=== PATIENT | male | born 1970 | race Caucasian/White ===

== ENCOUNTER 2024-09-18 17:47 | Emergency (ER) | payer BC ==
[~2024-09-18] VITALS: Ht 180.3 cm; Wt 86.8 kg
[2024-09-18 20:51] LABS: BASOPHILS # (AUTO) 0.1 X10'3 (0-0.2); BASOPHILS % (AUTO) 0.5 % (0-1); EOSINOPHILS # (AUTO) 0.2 X10'3 (0-0.9); EOSINOPHILS % (AUTO) 1.6 % (0-6); HEMATOCRIT 44.8 % (42.0-52.0); HEMOGLOBIN 15.9 g/dl (14.0-17.9); LYMPHOCYTES # (AUTO) 2.3 X10'3 (1.1-4.8); LYMPHOCYTES % (AUTO) 21.8 % (21-51); MEAN CORPUSCULAR HEMOGLOBIN 31.4 PG (27.0-31.0); MEAN CORPUSCULAR HGB CONC 35.5 g/dL (33.0-36.5); MEAN CORPUSCULAR VOLUME 88.6 FL (78-98); MEAN PLATELET VOLUME 6.7 FL (7.4-10.4); MONOCYTES # (AUTO) 0.7 X10'3 (0-0.9); MONOCYTES % (AUTO) 6.4 % (2-12); NEUTROPHILS # (AUTO) 7.4 X10'3 (1.8-7.7); NEUTROPHILS % (AUTO) 69.7 % (42-75); PLATELET COUNT 241 X10'3 (140-440); RED BLOOD COUNT 5.06 X10'6 (4.70-6.10); RED CELL DISTRIBUTION WIDTH 12.6 % (11.5-14.5); WHITE BLOOD COUNT 10.6 X10'3 (4.5-11.0)
[2024-09-18 21:00] LABS: ALANINE AMINOTRANSFERASE 32 U/L (12-78); ALBUMIN 3.8 G/DL (3.4-5.0); ANION GAP 11 (8-16); ASPARTATE AMINO TRANSFERASE 17 U/L (10-37); BILIRUBIN,TOTAL 0.8 MG/DL (0.1-1.0); BLOOD UREA NITROGEN 11 MG/DL (7-18); BUN/CREATININE RATIO 13.4 (10.0-20.0); CALCIUM 9.8 MG/DL (8.5-10.1); CHLORIDE 97 MMOL/L (99-107); CREATININE 0.82 MG/DL (0.60-1.10); GLUCOSE 366 MG/DL (70-104); POTASSIUM 3.9 MMOL/L (3.5-5.1); SODIUM 134 MMOL/L (135-145); TOTAL CARBON DIOXIDE 25.7 MMOL/L (24-32); TOTAL PROTEIN 7.8 G/DL (6.4-8.2); eCRCL 114 ML/MIN; eGFR > 90 ML/MIN
[2024-09-18 21:06] LABS: ALKALINE PHOSPHATASE 116 IU/L (46-116)
[2024-09-18] MEDS: ketorolac trometh 15mg/ml vial 15 MG/ML ML IV ONE (21:28)
[2024-09-18] MEDS ORDERED: iohexol 300mg/ml 100ml inj. ONE (22:02)
[2024-09-18] MEDS ORDERED: LIDOcaine 1% 30ml preserv. free vial IJ ONE (23:15)
[2024-09-19] MEDS ORDERED: AMOX-580 PO (00:49)
[2024-09-19] MEDS: rabies vaccine (PCEC)/PF 2.5 unit kit IMVAC ONE (00:57)
[2024-09-19] MEDS: rabies immune globulin/PF 150 unit/ml inj IMVAC ONE (00:59)
[2024-09-19 01:26] VITALS: BP 168/99; PULSE 99; RESP 18; TEMP 98.7; O2SAT 99
== END 2024-09-19 01:29 | disposition home or self-care (01) ==
LOC: ER 17:47
DX: S61.452A Open bite of left hand, initial encounter (principal); L02.512 Cutaneous abscess of left hand; Z23 Encounter for immunization; W55.01XA Bitten by cat, initial encounter; Y99.8 Other external cause status; Y93.89 Activity, other specified; Y92.89 Other specified places as the place of occurrence of the external cause
CPT/HCPCS: 10060; 36415; 73130; 73201; 80053; 83605; 84145; 85025; 87040; 90376; 90471; 90675; 96372; 96374; 99285; J1885; Q9967; A6449

== ENCOUNTER 2024-09-22 15:20 | Emergency (ER) | payer BC ==
[~2024-09-22] VITALS: Ht 180.3 cm; Wt 93.2 kg
[~2024-09-22 15:20] MED LIST: AMOX-580 PO
[2024-09-22 15:23] VITALS: BP 163/112; PULSE 100; RESP 16; TEMP 98; O2SAT 98
[2024-09-22] MEDS: rabies vaccine (PCEC)/PF 2.5 unit kit IMVAC ONE (16:10)
== END 2024-09-22 16:21 | disposition home or self-care (01) ==
LOC: ER 15:21
DX: S61.452D Open bite of left hand, subsequent encounter (principal); Z20.3 Contact with and (suspected) exposure to rabies; Z23 Encounter for immunization; W55.01XD Bitten by cat, subsequent encounter; Y93.89 Activity, other specified; Y92.89 Other specified places as the place of occurrence of the external cause; Y99.8 Other external cause status
CPT/HCPCS: 90471; 90675; 99281; 99283

== ENCOUNTER 2024-09-29 13:19 | Emergency (ER) | payer BC ==
[~2024-09-29] VITALS: Ht 180.3 cm; Wt 93.2 kg
[2024-09-29 13:28] VITALS: BP 147/97; PULSE 111; RESP 16; TEMP 98.6; O2SAT 99
[2024-09-29] MEDS ORDERED: AMOX-580 PO (14:16)
[2024-09-29] MEDS: rabies vaccine (PCEC)/PF 2.5 unit kit IMVAC ONE (14:36)
== END 2024-09-29 15:18 | disposition home or self-care (01) ==
LOC: ER 13:19
DX: Z23 Encounter for immunization (principal); Z20.3 Contact with and (suspected) exposure to rabies; L53.8 Other specified erythematous conditions
CPT/HCPCS: 90471; 90675; 99281; 99283

== ENCOUNTER 2024-10-07 13:03 | Emergency (ER) | payer BC ==
[~2024-10-07] VITALS: Ht 180.3 cm; Wt 86.2 kg
[2024-10-07 13:12] VITALS: BP 173/109; PULSE 110; RESP 18; O2SAT 97
[2024-10-07] MEDS: rabies vaccine (PCEC)/PF 2.5 unit kit IMVAC ONE (14:53)
[2024-10-07 14:57] VITALS: TEMP 97.8
== END 2024-10-07 14:59 | disposition home or self-care (01) ==
LOC: ER 13:03
DX: T81.89XA Other complications of procedures, not elsewhere classified, initial encounter (principal); Z20.3 Contact with and (suspected) exposure to rabies; Z23 Encounter for immunization; Y92.89 Other specified places as the place of occurrence of the external cause
CPT/HCPCS: 90471; 90675; 99281